=== PATIENT | male | born 1985 | race Caucasian/White ===

== ENCOUNTER 2019-06-07 13:15 | Emergency (ER) | payer OTHER, BC ==
[2019-06-07] MEDS ORDERED: Orphenadrine 100 MG Tab.ER PO ONE (16:27)
[2019-06-07] MEDS ORDERED: Ketorolac 30 MG/ML SDV IM ONE (16:27)
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
== END 2019-06-07 17:32 | disposition home or self-care (01) ==
LOC: JD.ED 13:15
DX: S13.4XXA Sprain of ligaments of cervical spine, initial encounter (principal); F17.210 Nicotine dependence, cigarettes, uncomplicated; Z98.890 Other specified postprocedural states; V53.6XXA Passenger in pick-up truck or van injured in collision with car, pick-up truck or van in traffic accident, initial encounter
CPT/HCPCS: 96372; 99283; A9270; J1885